=== PATIENT | female | born 1970 | race Two or more races ===

== ENCOUNTER 2020-06-04 08:04 | Inpatient (IN) | payer OTHER ==
[~2020-06-04] VITALS: Ht 167.6 cm; Wt 80.6 kg
[2020-06-04] MEDS ORDERED: SODIUM CHLORIDE 0.9% 1,000 ML IV ONE ×2 (08:37)
[2020-06-04 08:54] LABS: Basophils # (auto) 0 10 ^3/uL (0-0.2); Basophils % (auto) 0.8 % (0.0-2.0); Eosinophils # (auto) 0 10 ^3/uL (0-0.8); Eosinophils % (auto) 0.2 % (0.0-7.0); Hematocrit 44.7 % (36.0-46.0); Hemoglobin 14.7 g/dL (12.2-16.2); Lymphocytes # (auto) 0.8 10 ^3/uL (0.4-5.4); Lymphocytes % (auto) 16.8 % (10.0-50.0); Mean Corpuscular Hgb Conc. 32.9 g/dL (32.0-36.0); Mean Corpuscular Volume 88.2 fL (80.0-100.0); Monocytes # (auto) 0.3 10 ^3/uL (0-1.3); Monocytes % (auto) 5.2 % (0.0-12.0); Neutrophils # (auto) 3.8 10 ^3/uL (1.6-8.6); Platelet Count (auto) 130 10^3/uL (140-450); Red Blood Cells 5.07 10^6/uL (4.0-5.20); Red Cell Distribution Width 13.6 % (11.8-14.3); White Blood Cell 4.9 10^3/uL (4.4-10.8)
[2020-06-04 09:13] LABS: Albumin 3.2 g/dL (3.4-5.0); Anion Gap 6 (5-15); Blood Urea Nitrogen 6 mg/dL (7-18); Calcium 8.8 mg/dL (8.5-10.1); Carbon Dioxide 27 mmol/L (21-32); Chloride 101 mmol/L (98-107); Glucose 263 mg/dL (74-106); Potassium 3.5 mmol/L (3.5-5.1); Sodium 134 mmol/L (136-145)
[2020-06-04 09:21] LABS: Alanine Aminotransferase 78 U/L (13-56); Alkaline Phosphatase 152 U/L (45-117); Aspartate Aminotransferase 83 U/L (15-37); BUN/Creatinine Ratio 8.5; Bilirubin, Total 0.4 mg/dL (0.2-1.0); GFR African American 112 mL/min; GFR Non-African American 92 mL/min; Lactate Dehydrogenase 306 U/L (84-246); Total Protein 8.2 g/dL (6.4-8.2)
[2020-06-04] MEDS ORDERED: MORPHINE SULF INJ 2 MG/ML SYRINGE 1ML IV PRN ×3 (10:15→10:30)
[2020-06-04] MEDS ORDERED: NITROGLYCERIN 0.4 MG SL TAB SL PRN ×2 (10:15→10:30)
[2020-06-04] MEDS ORDERED: SODIUM CHLORIDE 0.9% 1,000 ML IV SCH (10:19)
[2020-06-04] MEDS ORDERED: DexAMETHasone SOD PHOS 4 MG/1ML SDV INJ IV ONE (10:30)
[2020-06-04] MEDS ORDERED: HYDROcodone-ACET 5/325MG TAB PO PRN (10:30)
[2020-06-04] MEDS ORDERED: DOCUSATE SOD 100 MG CAP PO PRN (10:30)
[2020-06-04] MEDS ORDERED: ACETAMINOPHEN 500 MG TAB PO PRN (10:30)
[2020-06-04] MEDS ORDERED: ENOXAPARIN SOD 100 MG/1 ML SYRINGE SC ONE (10:30)
[2020-06-04] MEDS ORDERED: LORazepam 0.5 MG TAB PO PRN (10:30)
[2020-06-04] MEDS ORDERED: ALUM & MAG HYDROX-SIMETH LIQ(MAALOX) 30 ML PO PRN (10:30)
[2020-06-04] MEDS ORDERED: ACETAMINOPHEN 325 MG TAB PO PRN (10:30)
[2020-06-04] MEDS ORDERED: ONDANSETRON HCL 4 MG/2 ML VIAL IV PRN (10:30)
[2020-06-04] MEDS ORDERED: FUROSEMIDE 20 MG/2 ML VIAL IV ONE (10:45)
[2020-06-04] MEDS: hydrOXYchloroQUINE SULFATE 200 MG TAB PO SCH ×2 (11:00→22:22)
[2020-06-04] MEDS ORDERED: DEXTROSE (50%) 50ML SYRG IV PRN (11:00)
[2020-06-04] MEDS ORDERED: cloNIDine HCL 0.1 MG TAB PO PRN (11:15)
[2020-06-04 11:27] LABS: Cholesterol 130 mg/dL (< 200); HDL Cholesterol 41 mg/dL (40-59); LDL Cholesterol 86 mg/dL (< 100); Triglycerides 90 mg/dL (< 150)
[2020-06-04] MEDS: InsuLIN REG 1unit/0.01ml Soln (100units/ml) SC SCH ×3 (11:30→22:22)
[2020-06-04] MEDS: ACCU-CHEK COMFORT CURVE STRIP VI SCH ×3 (11:30→22:22)
[2020-06-04 11:39] LABS: Urine Bacteria NONE SEEN /hpf (None Seen); Urine Blood Negative /uL (Negative); Urine WBC <1 /hpf (0 - 5)
[2020-06-04] MEDS ORDERED: methylPREDNISolone SOD SUCC 125 MG/2 ML VL IV ONE (11:45)
[2020-06-04 11:48] LABS: Alcohol, Urine < 3.0 mg/dL (0-10); Amphetamine Screen, Urine NEGATIVE (NEGATIVE); Barbiturate Scree,Urine NEGATIVE (NEGATIVE); Benzodiazephine Screen, Urine NEGATIVE (NEGATIVE); Cannabinoid Screen, Urine NEGATIVE (NEGATIVE); Cocaine Screen, Urine NEGATIVE (NEGATIVE); Opiate Scree,Urine NEGATIVE (NEGATIVE); Phencyclidine Screen, Urine NEGATIVE (NEGATIVE)
[2020-06-04] MEDS ORDERED: ASCO100076 PO (12:35)
[2020-06-04] MEDS ORDERED: ACET-1304 PO (12:35)
[2020-06-04] MEDS ORDERED: CHOL500033 PO (12:35)
[2020-06-04] MEDS: TOCILIZUMAB 400 MG in SODIUM CHL 0.9% 80 ML IV SCH (12:49)
[2020-06-04 13:52] VITALS: BP 150/78
[2020-06-04] MEDS: ALBUTEROL SULF HFA 90MCG INH 200DOSE IN SCH ×2 (14:17→22:01)
[2020-06-04] MEDS ORDERED: DexAMETHasone SOD PHOS 10MG/1ML VIAL INJ IV SCH (16:30)
[2020-06-04] MEDS: FUROSEMIDE 20 MG/2 ML VIAL IV SCH (18:03)
[2020-06-04] MEDS: FAMOTIDINE 20 MG TAB PO SCH (19:00)
--- NOTE | 2020-06-04 19:40 | NUR ---
Opening Shift Note Assumed care of patient, awake and alert. No S/S of distress/SOB or pain. Instructed on POC and to call for assist PRN. Bed in lowest locked position, call light within reach, side rails up x2. Will continue to monitor for changes Q1hr and PRN.
[2020-06-04 22:00] VITALS: BP 117/68
[2020-06-04] MEDS ORDERED: BUDESONIDE (INHALATION) 0.5 MG/2 ML NEB NEB SCH (22:00)
[2020-06-04] MEDS: DOXYCYCLINE 100MG/250ML 250 ML IV SCH (22:22)
[2020-06-04] MEDS: ENOXAPARIN SOD 100 MG/1 ML SYRINGE SC SCH (22:23)
[2020-06-04] MEDS ORDERED: methylPREDNISolone SOD SUCC 40 MG/ML VL IV ONE (23:30)
[2020-06-04] MEDS ORDERED: ACETAMINOPHEN 650 mg PER 20 mL UD PO ONE (23:30)
[2020-06-04] MEDS ORDERED: diphenhdrAMINE HCL 50 MG/1 ML VL IV ONE (23:30)
[2020-06-05] MEDS: TOCILIZUMAB 400 MG in SODIUM CHL 0.9% 80 ML IV SCH (00:24)
[2020-06-05 05:00] VITALS: BP 128/82
[2020-06-05] MEDS: FUROSEMIDE 20 MG/2 ML VIAL IV SCH ×2 (06:31→18:21)
[2020-06-05] MEDS: InsuLIN REG 1unit/0.01ml Soln (100units/ml) SC SCH ×4 (06:33→22:24)
[2020-06-05 06:37] LABS: Basophils # (auto) 0 10 ^3/uL (0-0.2); Basophils % (auto) 0.2 % (0.0-2.0); Eosinophils # (auto) 0 10 ^3/uL (0-0.8); Hemoglobin 15.3 g/dL (12.2-16.2); Lymphocytes # (auto) 0.9 10 ^3/uL (0.4-5.4); Lymphocytes % (auto) 34.7 % (10.0-50.0); Mean Corpuscular Hemoglobin 29.4 pg (28.0-32.0); Mean Corpuscular Hgb Conc. 33.2 g/dL (32.0-36.0); Mean Corpuscular Volume 88.4 fL (80.0-100.0); Monocytes # (auto) 0.2 10 ^3/uL (0-1.3); Monocytes % (auto) 7.9 % (0.0-12.0); Neutrophils # (auto) 1.5 10 ^3/uL (1.6-8.6); Neutrophils % (auto) 57.2 % (37.0-80.0); Nucleated Red Blood Cells % 0.4 %; Platelet Count (auto) 175 10^3/uL (140-450); Red Blood Cells 5.21 10^6/uL (4.0-5.20); Red Cell Distribution Width 13.5 % (11.8-14.3); White Blood Cell 2.7 10^3/uL (4.4-10.8)
[2020-06-05] MEDS: ACCU-CHEK COMFORT CURVE STRIP VI SCH ×4 (06:40→22:24)
[2020-06-05 06:49] LABS: Potassium 3.1 mmol/L (3.5-5.1)
[2020-06-05 06:54] LABS: INR 1.01 (0.9-1.15); Partial Thromboplastin Time 39.8 sec (23.64-32.05)
[2020-06-05 07:20] LABS: BUN/Creatinine Ratio 12.8; Bilirubin, Total 0.5 mg/dL (0.2-1.0); CRP High Sensitivity 13.2 mg/dL (< 0.3); Calcium 8.8 mg/dL (8.5-10.1); Magnesium 2.1 mg/dL (1.6-2.6); Phosphorus 3.5 mg/dL (2.5-4.90); Total Protein 8.4 g/dL (6.4-8.2)
[2020-06-05 08:00] VITALS: BP 111/67
[2020-06-05] MEDS ORDERED: POTASSIUM CHL 20 Meq TABLET PO ONE (08:45)
[2020-06-05 09:04] VITALS: BP 111/67
[2020-06-05] MEDS: DexAMETHasone SOD PHOS 10MG/1ML VIAL INJ IV SCH (09:30)
[2020-06-05] MEDS: DOXYCYCLINE 100MG/250ML 250 ML IV SCH ×2 (09:31→22:21)
[2020-06-05] MEDS: ZINC SULFATE 220mg CAP or TAB PO SCH (09:31)
[2020-06-05] MEDS: FAMOTIDINE 20 MG TAB PO SCH (09:33)
[2020-06-05] MEDS: CHOLECALCIFEROL (VITD3) 1,000UNIT=25mCg TAB PO SCH (09:34)
[2020-06-05] MEDS: ASCORBIC ACID 1,000 MG TAB PO SCH (09:34)
[2020-06-05] MEDS: ENOXAPARIN SOD 100 MG/1 ML SYRINGE SC SCH ×2 (09:35→22:22)
[2020-06-05] MEDS: ALBUTEROL SULF HFA 90MCG INH 200DOSE IN SCH ×3 (11:30→23:40)
[2020-06-05] MEDS: hydrOXYchloroQUINE SULFATE 200 MG TAB PO SCH ×2 (12:14→22:22)
[2020-06-05 12:30] VITALS: BP 130/63
--- NOTE | 2020-06-05 13:23 | NUR ---
1320 06/05/20 Contacted [facility] at [phone] requesting authorization for continued inpatient stay. Spoke with senior compliance analyst Sherry who confirmed receiving all clinical notes for this patient. Sherry provided authorization [id number] for continued inpatient stay.
[2020-06-05] MEDS ORDERED: cefTRIAXone 1GM/50ML D5W 50 ML IV ONE (14:30)
[2020-06-05] MEDS ORDERED: DEXTROSE (50%) 50ML SYRG IV PRN (16:30)
[2020-06-05 17:07] VITALS: BP 127/72
[2020-06-05 22:00] VITALS: BP 125/79
[2020-06-05] MEDS: BUDESONIDE (INHALATION) 180 MCG IH IN SCH (22:00)
[2020-06-05] MEDS: INSULIN 70/30 1unit/0.01ml Susp (100units/ml) SC SCH (22:22)
--- NOTE | 2020-06-05 22:30 | NUR ---
IV insertion IV access obtained, via clean sterile technique by inserting 22 gauge catheter at right wrist after 1 attempt(s). IV secured properly. No trauma to site. Patient tolerated procedure well.
[2020-06-06 05:15] VITALS: BP 118/72
[2020-06-06 06:29] LABS: Calcium 9.3 mg/dL (8.5-10.1)
[2020-06-06] MEDS: ACCU-CHEK COMFORT CURVE STRIP VI SCH ×4 (06:30→23:42)
[2020-06-06] MEDS: InsuLIN REG 1unit/0.01ml Soln (100units/ml) SC SCH ×4 (06:30→23:41)
[2020-06-06] MEDS: FUROSEMIDE 20 MG/2 ML VIAL IV SCH ×2 (06:30→18:03)
[2020-06-06 06:34] LABS: BUN/Creatinine Ratio 20.8; Bilirubin, Total 0.4 mg/dL (0.2-1.0); Total Protein 8.2 g/dL (6.4-8.2)
[2020-06-06] MEDS: ALBUTEROL SULF HFA 90MCG INH 200DOSE IN SCH ×3 (07:43→22:25)
[2020-06-06] MEDS: BUDESONIDE (INHALATION) 180 MCG IH IN SCH ×2 (07:43→22:25)
[2020-06-06 08:20] VITALS: BP 112/67
[2020-06-06] MEDS ORDERED: guaiFENesin 200 MG/10 ML UD PO PRN (08:45)
[2020-06-06] MEDS: cefTRIAXone 1GM/50ML D5W 50 ML IV SCH (09:07)
[2020-06-06] MEDS: DexAMETHasone SOD PHOS 10MG/1ML VIAL INJ IV SCH (09:47)
[2020-06-06] MEDS: ZINC SULFATE 220mg CAP or TAB PO SCH (09:47)
[2020-06-06] MEDS: FAMOTIDINE 20 MG TAB PO SCH (09:47)
[2020-06-06] MEDS: CHOLECALCIFEROL (VITD3) 1,000UNIT=25mCg TAB PO SCH (09:48)
[2020-06-06] MEDS: hydrOXYchloroQUINE SULFATE 200 MG TAB PO SCH ×2 (09:48→23:33)
[2020-06-06] MEDS: ASCORBIC ACID 1,000 MG TAB PO SCH (09:48)
[2020-06-06] MEDS: DOXYCYCLINE 100MG/250ML 250 ML IV SCH (10:18)
[2020-06-06] MEDS: ENOXAPARIN SOD 60 MG/0.6 ML SYRINGE SC SCH ×2 (10:34→23:34)
[2020-06-06] MEDS: INSULIN 70/30 1unit/0.01ml Susp (100units/ml) SC SCH ×2 (10:35→23:40)
--- NOTE | 2020-06-06 11:00 | NUR ---
DR SIDDIQUI AT BEDSIDE DECREASED OXYGEN TO 8 LITERS VIA OXYMIZER WITH SATURATION 91-92 %. HE SAID LEAVE HER ON 8 LITERS AND OXYGEN SATURATION 91 % OR BETTER.
[2020-06-06 12:18] VITALS: BP 115/63
--- NOTE | 2020-06-06 14:31 | NUR ---
Nutrition Consult/assessment Note please see attached link for complete assessment Est energy needs ABW 72 [id number] kcal (23-25 kcal/kg) Est protein needs 72-79g (1.0-1.1g/kg BW) will reassess prn. Addendum: 06/06/20 at [address] Amended: Links added.
[2020-06-06 16:44] VITALS: BP 135/67
--- NOTE | 2020-06-06 16:48 | NUR ---
330 06/07/20 - Contacted [facility] at [phone], requesting update on transfer to [facility]. Spoke with product management analyst [place] who stated there are no available beds and authorization [id number] has been extended for continued inpatient stay.
--- NOTE | 2020-06-06 20:00 | NUR ---
Opening Shift Note Assumed care of patient. Awake, alert and oriented x4. No S/S of distress/SOB or pain. Patient is laying down in bed, oxymizer is on at 12L, with even and unlabored respirations. Instructed on POC and to call for assist PRN. Bed locked, in lowest position, call light within reach, side rails up x2. Will continue to monitor for changes Q1hr and PRN.
[2020-06-06] MEDS: methylPREDNISolone SOD SUCC 40 MG/ML VL IV SCH (21:01)
[2020-06-06] MEDS: diphenhdrAMINE HCL 50 MG/1 ML VL IV SCH (21:01)
[2020-06-06] MEDS: ACETAMINOPHEN 650 mg PER 20 mL UD PO SCH (21:02)
[2020-06-06] MEDS: TOCILIZUMAB 400 MG in SODIUM CHL 0.9% 80 ML IV SCH (21:43)
[2020-06-06 22:00] VITALS: BP 110/58
[2020-06-06] MEDS ORDERED: PATIENTS OWN MEDICATION (ACTEMRA 400 MG) IV SCH ×2 (22:00)
[2020-06-07] VITALS (9 sets, daily range): BP systolic 107–132; BP diastolic 57–78
[2020-06-07] MEDS: DOXYCYCLINE 100MG/250ML 250 ML IV SCH ×3 (01:56→22:00)
[2020-06-07] MEDS: FUROSEMIDE 20 MG/2 ML VIAL IV SCH ×2 (06:23→18:03)
[2020-06-07] MEDS: ACCU-CHEK COMFORT CURVE STRIP VI SCH ×4 (06:23→21:38)
[2020-06-07] MEDS: InsuLIN REG 1unit/0.01ml Soln (100units/ml) SC SCH ×4 (06:27→21:37)
[2020-06-07] MEDS: ALBUTEROL SULF HFA 90MCG INH 200DOSE IN SCH ×3 (07:20→22:00)
[2020-06-07] MEDS: methylPREDNISolone SOD SUCC 40 MG/ML VL IV SCH (08:45)
[2020-06-07] MEDS: diphenhdrAMINE HCL 50 MG/1 ML VL IV SCH (08:45)
[2020-06-07] MEDS: ACETAMINOPHEN 650 mg PER 20 mL UD PO SCH (08:45)
[2020-06-07] MEDS: TOCILIZUMAB 400 MG in SODIUM CHL 0.9% 80 ML IV SCH (09:00)
[2020-06-07] MEDS: cefTRIAXone 1GM/50ML D5W 50 ML IV SCH (11:40)
[2020-06-07] MEDS: DexAMETHasone SOD PHOS 10MG/1ML VIAL INJ IV SCH (11:40)
[2020-06-07] MEDS: BUDESONIDE (INHALATION) 180 MCG IH IN SCH ×2 (11:40→22:00)
[2020-06-07] MEDS: CHOLECALCIFEROL (VITD3) 1,000UNIT=25mCg TAB PO SCH (11:41)
[2020-06-07] MEDS: ZINC SULFATE 220mg CAP or TAB PO SCH (11:41)
[2020-06-07] MEDS: ASCORBIC ACID 1,000 MG TAB PO SCH (11:41)
[2020-06-07] MEDS: hydrOXYchloroQUINE SULFATE 200 MG TAB PO SCH (11:41)
[2020-06-07] MEDS: FAMOTIDINE 20 MG TAB PO SCH (11:41)
[2020-06-07] MEDS: ENOXAPARIN SOD 60 MG/0.6 ML SYRINGE SC SCH ×2 (11:42→21:28)
[2020-06-07] MEDS: INSULIN 70/30 1unit/0.01ml Susp (100units/ml) SC SCH ×2 (11:44→21:37)
[2020-06-07] MEDS ORDERED: REMDESIVIR 200 MG in NS 210ml LOADING DOSE ADULT IV ONE ×2 (18:00→21:00)
--- NOTE | 2020-06-07 19:30 | NUR ---
Opening Shift Note Assumed care of patient, awake and alert. No S/S of distress/SOB or pain. Instructed on POC and to call for assist PRN, will continue to monitor for changes Q1hr and PRN. bed in low position and call light within reach.
--- NOTE | 2020-06-07 19:30 | NUR ---
patient refuses pulse ox monitor per patient " it makes too much noise" patient educated on benefits and risk. patient verbalized understanding.
--- NOTE | 2020-06-07 21:03 | NUR ---
IV insertion/IV removal IV DC'd with clean sterile technique, catheter fully intact. Pressure dressing applied to site. Patient tolerated well. IV access obtained, via clean sterile technique by inserting 22 gauge catheter to right and left hand after 1 attempt. IV secured properly. No trauma to site. Patient tolerated well.
--- NOTE | 2020-06-07 21:11 | NUR ---
medication Remdesivir medication pre infusion vs 144/82 b/p o2 saturation 90% via 10l oxymizer, rr 18, temperature 98.0. heart rate 73bpm. patient consent signed .patient educated on mediation including benefits and risk. fact sheet provided to patient but patient refused stated she wants her fact sheet placed in her chart. patient informed that remedesivir is an unapproved drug that is authorized for use under [employer]. all questions and concerns answered patient verbalized understanding. Addendum: 06/08/20 at 0000 by IVONNE GALEANA RN RN correction 12l oxymizer
--- NOTE | 2020-06-07 21:26 | NUR ---
15 min vs b/p 138/75,heart rate 64,o2 saturation 90%, t 98.0.denies distress or pain. no reaction noted or reported.
--- NOTE | 2020-06-07 21:37 | NUR ---
patient refused insulin scheduled. per patient " i do not want my blood sugar to drop since i am receiving the other insulin." patient educated on benefits and risk patient verbalized understanding and refused.
--- NOTE | 2020-06-07 22:15 | NUR ---
post infusion vs b/p 112/76, hr 62, rr 16, o2 saturation 90%, temp 98.5. patient denies distress or pain. no reaction noted or reported.
--- NOTE | 2020-06-08 | NUR ---
correction 12l oxymizer
[2020-06-08 05:00] VITALS: BP 113/53
[2020-06-08 05:12] LABS: Basophils # (auto) 0 10 ^3/uL (0-0.2); Basophils % (auto) 0.1 % (0.0-2.0); Eosinophils # (auto) 0 10 ^3/uL (0-0.8); Hematocrit 45.6 % (36.0-46.0); Hemoglobin 15.2 g/dL (12.2-16.2); Lymphocytes # (auto) 1.4 10 ^3/uL (0.4-5.4); Mean Corpuscular Hemoglobin 29.5 pg (28.0-32.0); Mean Corpuscular Hgb Conc. 33.4 g/dL (32.0-36.0); Mean Corpuscular Volume 88.3 fL (80.0-100.0); Monocytes # (auto) 0.6 10 ^3/uL (0-1.3); Monocytes % (auto) 13.4 % (0.0-12.0); Neutrophils # (auto) 2.7 10 ^3/uL (1.6-8.6); Neutrophils % (auto) 56.5 % (37.0-80.0); Nucleated Red Blood Cells % 0.1 %; Platelet Count (auto) 186 10^3/uL (140-450); Red Blood Cells 5.17 10^6/uL (4.0-5.20); Red Cell Distribution Width 13.1 % (11.8-14.3); White Blood Cell 4.7 10^3/uL (4.4-10.8)
[2020-06-08 05:29] LABS: Potassium 3.3 mmol/L (3.5-5.1)
[2020-06-08 05:35] LABS: BUN/Creatinine Ratio 18.1; Bilirubin, Total 0.5 mg/dL (0.2-1.0); Total Protein 7.6 g/dL (6.4-8.2)
[2020-06-08] MEDS: FUROSEMIDE 20 MG/2 ML VIAL IV SCH ×2 (06:25→17:36)
[2020-06-08] MEDS: ACCU-CHEK COMFORT CURVE STRIP VI SCH ×4 (06:30→21:54)
[2020-06-08] MEDS: InsuLIN REG 1unit/0.01ml Soln (100units/ml) SC SCH ×4 (06:30→21:54)
--- NOTE | 2020-06-08 06:50 | NUR ---
patient rounds patient is in bed performing am care. patient denies distress or pain. call light within reach and bed in low position
--- NOTE | 2020-06-08 07:14 | NUR ---
report given to dayshift rn patient is alert and awake denies sob distress or pain
[2020-06-08 09:00] VITALS: BP 107/59
[2020-06-08] MEDS: ALBUTEROL SULF HFA 90MCG INH 200DOSE IN SCH ×3 (09:20→23:12)
[2020-06-08] MEDS: BUDESONIDE (INHALATION) 180 MCG IH IN SCH ×2 (09:20→23:12)
[2020-06-08] MEDS: ZINC SULFATE 220mg CAP or TAB PO SCH (09:36)
[2020-06-08] MEDS: FAMOTIDINE 20 MG TAB PO SCH (09:36)
[2020-06-08] MEDS: cefTRIAXone 1GM/50ML D5W 50 ML IV SCH ×2 (09:36→22:49)
[2020-06-08] MEDS: ENOXAPARIN SOD 60 MG/0.6 ML SYRINGE SC SCH ×2 (09:37→21:54)
[2020-06-08] MEDS: ASCORBIC ACID 1,000 MG TAB PO SCH (09:37)
[2020-06-08] MEDS: CHOLECALCIFEROL (VITD3) 1,000UNIT=25mCg TAB PO SCH (09:37)
[2020-06-08] MEDS: INSULIN 70/30 1unit/0.01ml Susp (100units/ml) SC SCH ×2 (10:00→21:55)
[2020-06-08] MEDS: DexAMETHasone SOD PHOS 10MG/1ML VIAL INJ IV SCH (10:32)
[2020-06-08] MEDS: DOXYCYCLINE 100MG/250ML 250 ML IV SCH ×2 (10:32→23:20)
--- NOTE | 2020-06-08 11:59 | NUR ---
Dr Sutherland called with orders for labs on wednesday.
[2020-06-08 13:00] VITALS: BP 132/72
[2020-06-08] MEDS ORDERED: POTASSIUM EFFERVESENT TAB 25 MEQ PO ONE (16:30)
[2020-06-08 17:00] VITALS: BP 134/75
--- NOTE | 2020-06-08 20:04 | NUR ---
OPEN NOTE Assumed care of pt. upon entering room pt awake, alert and oriented x4. pt on 12L oxymizer with no distress noted or expressed. pt denies any pain. pt updated on plan of care. pt assisted to bsc as she states she can get light headed at times. pt refuses to wear continuous pulse ox despite this nurse reinforcing risks and benefits. oxygen saturation is 91% at this time. bed locked, low and 2x rails up. pt encouraged to call nurse as needed. call light in reach, this nurse to round q1hr and prn.
[2020-06-08] MEDS ORDERED: REMDESIVIR 100mg in NS 230ml DAILYx4DAYS (NO VENT) IV SCH (21:00)
[2020-06-09 05:00] VITALS: BP 113/68
[2020-06-09 05:52] LABS: BUN/Creatinine Ratio 25.9; Calcium 9.2 mg/dL (8.5-10.1); Potassium 3.6 mmol/L (3.5-5.1)
[2020-06-09] MEDS: ACCU-CHEK COMFORT CURVE STRIP VI SCH ×4 (06:21→21:40)
[2020-06-09] MEDS: FUROSEMIDE 20 MG/2 ML VIAL IV SCH ×2 (06:21→17:46)
[2020-06-09] MEDS: InsuLIN REG 1unit/0.01ml Soln (100units/ml) SC SCH ×4 (06:22→21:41)
[2020-06-09] MEDS: ALBUTEROL SULF HFA 90MCG INH 200DOSE IN SCH ×3 (06:46→23:46)
[2020-06-09] MEDS: BUDESONIDE (INHALATION) 180 MCG IH IN SCH ×2 (06:46→22:00)
[2020-06-09 08:48] VITALS: BP 117/70
[2020-06-09] MEDS: ZINC SULFATE 220mg CAP or TAB PO SCH (09:49)
[2020-06-09] MEDS: FAMOTIDINE 20 MG TAB PO SCH (09:49)
[2020-06-09] MEDS: POTASSIUM EFFERVESENT TAB 25 MEQ PO SCH (09:49)
[2020-06-09] MEDS: CHOLECALCIFEROL (VITD3) 1,000UNIT=25mCg TAB PO SCH (09:49)
[2020-06-09] MEDS: ENOXAPARIN SOD 60 MG/0.6 ML SYRINGE SC SCH ×2 (09:49→21:39)
[2020-06-09] MEDS: cefTRIAXone 1GM/50ML D5W 50 ML IV SCH ×2 (09:50→21:39)
[2020-06-09] MEDS: DexAMETHasone SOD PHOS 10MG/1ML VIAL INJ IV SCH (09:50)
[2020-06-09] MEDS: DOXYCYCLINE 100MG/250ML 250 ML IV SCH (09:58)
[2020-06-09] MEDS: ASCORBIC ACID 1,000 MG TAB PO SCH (09:58)
[2020-06-09] MEDS: INSULIN 70/30 1unit/0.01ml Susp (100units/ml) SC SCH ×2 (09:59→21:40)
[2020-06-09 12:23] VITALS: BP 125/72
--- NOTE | 2020-06-09 13:58 | NUR ---
Nutrition Followup Note Wt 81.0kg Pt is covid positive in the covid wing. Pt with diet order of CCHO 75g. Pt appetite is fair aeb pt with inadequate intake of 50% avg po intake x 3 days. Will continue to monitor pt po intake and need for additional oral supplements. Est energy needs ABW 72 [id number] kcal (23-25 kcal/kg) Est protein needs 72-79g (1.0-1.1g/kg BW) will reassess prn. Labs: Creat 0.54L, Alb 3.0L, GLUC 142H BM: Pt with 2 BMs 06/09 per RN note Skin: BS 18 mod risk, full details in spiritual care coordinator note PES: Altered nutrition related lab values r/t current chronic medical condition aeb hyperglycemia, elev A1C Decreased nutrient needs r/t adiposity aeb pt`s high BMI of 30.5 kgm2 Comments Consider changing pt diet to CCHO 60g 1) refer to CDE on DC 2) continue current plan of care Expected Outcomes/Goals: pt will have improved labs pt will not gain any more wt F/u mod 3-5 days
[2020-06-09 17:21] VITALS: BP 119/73
[2020-06-09] MEDS: REMDESIVIR 100mg in NS 230ml DAILYx4DAYS (NO VENT) IV SCH (17:45)
--- NOTE | 2020-06-09 17:50 | NUR ---
after I scanned the medication the patient asked that I wait until she goes to the bathroom before starting. Patient currently going to bathroom on commode. Addendum: 06/09/20 at 1823 by Bindu Orta RN RE: tom
--- NOTE | 2020-06-09 18:10 | NUR ---
Remdicivir started on patient.
--- NOTE | 2020-06-09 19:15 | NUR ---
Opening note pt is A&Ox4. respirations are even and nonlabored on 11L oxymizer. no s/s of pain or distress at this time. pt experiences SOB with exertion, and is encouraged to call for assistance when trying to ambulate to BSC. pt is using the incentive spirometer. POC discussed with pt, verbalized understanding. bed in low locked position, call light within reach.
[2020-06-09 23:13] VITALS: BP 141/76
[2020-06-10 05:30] VITALS: BP 107/57
[2020-06-10] MEDS: ACCU-CHEK COMFORT CURVE STRIP VI SCH ×4 (06:56→21:56)
[2020-06-10] MEDS: InsuLIN REG 1unit/0.01ml Soln (100units/ml) SC SCH ×4 (06:57→21:55)
[2020-06-10] MEDS: FUROSEMIDE 20 MG/2 ML VIAL IV SCH ×2 (07:07→18:23)
[2020-06-10] MEDS: BUDESONIDE (INHALATION) 180 MCG IH IN SCH ×2 (07:15→22:15)
--- NOTE | 2020-06-10 07:22 | NUR ---
closing note pt resting in semi fowlers with HOB at 30 degrees. pt is on 11L oxymizer. no c/o pain or discomfort at this time. endorsed care to day shift ERIK Yanez.
[2020-06-10 07:35] LABS: Albumin 3.2 g/dL (3.4-5.0); Potassium 3.8 mmol/L (3.5-5.1)
[2020-06-10 07:40] LABS: BUN/Creatinine Ratio 27.1; Bilirubin, Total 0.7 mg/dL (0.2-1.0); Total Protein 7.5 g/dL (6.4-8.2)
[2020-06-10] MEDS: ALBUTEROL SULF HFA 90MCG INH 200DOSE IN SCH ×3 (08:37→22:15)
[2020-06-10] MEDS: ZINC SULFATE 220mg CAP or TAB PO SCH (10:18)
[2020-06-10] MEDS: DexAMETHasone SOD PHOS 10MG/1ML VIAL INJ IV SCH (10:18)
[2020-06-10] MEDS: FAMOTIDINE 20 MG TAB PO SCH (10:18)
[2020-06-10] MEDS: ENOXAPARIN SOD 60 MG/0.6 ML SYRINGE SC SCH ×2 (10:18→21:56)
[2020-06-10] MEDS: cefTRIAXone 1GM/50ML D5W 50 ML IV SCH ×2 (10:18→21:56)
[2020-06-10] MEDS: ASCORBIC ACID 1,000 MG TAB PO SCH (10:18)
[2020-06-10] MEDS: POTASSIUM EFFERVESENT TAB 25 MEQ PO SCH (10:18)
[2020-06-10 10:49] VITALS: BP 115/73
[2020-06-10] MEDS: CHOLECALCIFEROL (VITD3) 1,000UNIT=25mCg TAB PO SCH (11:04)
[2020-06-10 11:42] VITALS: BP 115/73
[2020-06-10] MEDS: INSULIN 70/30 1unit/0.01ml Susp (100units/ml) SC SCH ×2 (12:52→22:00)
[2020-06-10 13:00] VITALS: BP 109/65
--- NOTE | 2020-06-10 16:00 | NUR ---
PT ON 5LPM OXYMIZER AT 93% TOLERATING WELL. WILL CONTINUE TO MONITOR.
[2020-06-10] MEDS: REMDESIVIR 100mg in NS 230ml DAILYx4DAYS (NO VENT) IV SCH (17:28)
[2020-06-10 17:47] VITALS: BP 106/67
--- NOTE | 2020-06-10 19:10 | NUR ---
Opening note pt A&Ox4. respirations even and nonlabored on 5L oxymizer. O2 saturation is 95% at this time. pt denies any pain or discomfort at this time. no s/s of distress. POC discussed. pt ambulates to BSC with standby assist. bed in low locked position, call light within reach.
[2020-06-10 22:00] VITALS: BP 126/67
--- NOTE | 2020-06-11 02:20 | NUR ---
Rounds pt resting comfortably in rt lateral position with eyes closed. Respirations even and nonlabored on 5L oxymizer. O2 saturation is 94%. will continue to monitor.
[2020-06-11 05:28] VITALS: BP 129/77
[2020-06-11] MEDS: FUROSEMIDE 20 MG/2 ML VIAL IV SCH ×2 (06:45→17:44)
[2020-06-11] MEDS: ACCU-CHEK COMFORT CURVE STRIP VI SCH ×4 (06:46→21:42)
[2020-06-11] MEDS: InsuLIN REG 1unit/0.01ml Soln (100units/ml) SC SCH ×4 (06:46→21:42)
--- NOTE | 2020-06-11 07:19 | NUR ---
CLOSING NOTE pt dangling at bedside. respirations even and nonlabored on 5L oxymizer. no c/o pain or discomfort. bed in low locked position, call light within reach.
[2020-06-11 09:00] VITALS: BP 100/58
[2020-06-11] MEDS: cefTRIAXone 1GM/50ML D5W 50 ML IV SCH ×2 (09:20→21:41)
[2020-06-11] MEDS: DexAMETHasone SOD PHOS 10MG/1ML VIAL INJ IV SCH (09:21)
[2020-06-11] MEDS: ASCORBIC ACID 1,000 MG TAB PO SCH (09:21)
[2020-06-11] MEDS: FAMOTIDINE 20 MG TAB PO SCH (09:21)
[2020-06-11] MEDS: POTASSIUM EFFERVESENT TAB 25 MEQ PO SCH (09:22)
[2020-06-11] MEDS: ZINC SULFATE 220mg CAP or TAB PO SCH (09:23)
[2020-06-11] MEDS: BUDESONIDE (INHALATION) 180 MCG IH IN SCH (09:23)
[2020-06-11] MEDS: CHOLECALCIFEROL (VITD3) 1,000UNIT=25mCg TAB PO SCH (10:45)
[2020-06-11] MEDS: ENOXAPARIN SOD 60 MG/0.6 ML SYRINGE SC SCH ×2 (10:45→21:41)
[2020-06-11] MEDS: ALBUTEROL SULF HFA 90MCG INH 200DOSE IN SCH ×2 (10:50→16:11)
[2020-06-11] MEDS: INSULIN 70/30 1unit/0.01ml Susp (100units/ml) SC SCH ×2 (12:37→21:43)
[2020-06-11 13:00] VITALS: BP 104/59
--- NOTE | 2020-06-11 16:41 | NUR ---
assessment Patient is a 50 year old female who is alert and oriented and Covid positive. Patients cognitive abilities are intact. Prior to admission patient lived home with family and functioned independently. Patient informed me she is able to care for her own ADLs. Per patient she will return home to her prior living arrangements post discharge and family will transport her home. Patient informed me her PCP is Dr Mckeon in [place]. Patient informed me she works at an [employer] and may have got covid 19 from work. Patients i spositive also and works at the same facility. Patient is on 7L oxygen today. Patient may need oxygen on discharge. I will continue to monitor and follow up as appropriate. I informed patient she has a right to speak to a social sciences instructor regarding all care. I informed patient she has a right to participate in any and all discharge planning. Patient does not have a POA and advanced directive. I have offered patient information on POA and advanced directives. I informed the patient the advantages and benefits of having an Advanced Directive. Patient verbalized understanding and agreed to discharge plan. Addendum: 06/11/20 at 1644 by Anuradha ROB Amended: Links added. Addendum: 06/11/20 at 1648 by Anuradha ROB correction to above note Patient does not work at the [employer]. Patient is unsure of where she may have come in contact with the Covid virus. Patient uses the [facility] for any medical needs at [place]. Patient is on 12L oximizer today and may need oxygen on discharge.
[2020-06-11 16:46] VITALS: BP 107/56
[2020-06-11] MEDS: REMDESIVIR 100mg in NS 230ml DAILYx4DAYS (NO VENT) IV SCH (17:42)
--- NOTE | 2020-06-11 18:20 | NUR ---
PT ON 4LPM OXYMIZER AT 94% TOLERATING WELL. PT DENIES ANY DISCOMFORT. BED LOCKED AND IN LOWEST POSITION CALL LIGHT WITHIN REACH.
--- NOTE | 2020-06-11 19:10 | NUR ---
Opening note Pt is A&Ox4. Respirations even and nonlabored on 4L nc. no c/o pain or discomfort. bed in low locked position, call light within reach.
--- NOTE | 2020-06-11 21:40 | NUR ---
Dr. Sebas Mullen contacted this patient's RN via telephone. Dr. Mullen gave orders to titrate O2 supplementation down to 3L via nasal cannula. This nurse will carry out order.
[2020-06-11 22:00] VITALS: BP 113/50
[2020-06-12] VITALS (7 sets, daily range): BP systolic 100–112; BP diastolic 59–68
[2020-06-12] MEDS: ALBUTEROL SULF HFA 90MCG INH 200DOSE IN SCH ×4 (00:14→22:42)
[2020-06-12] MEDS: BUDESONIDE (INHALATION) 180 MCG IH IN SCH ×3 (00:14→22:00)
--- NOTE | 2020-06-12 00:14 | NUR ---
PT REFUSED TO BE TITRATED TO 3L O2 VIA OXYMIZER. PT ASKED TO BE LEFT ON 4L, EXPLAINED TO PT THAT SHE WAS NOT REQUIRING A HIGHER LEVEL OF OXYGEN AT THIS TIME, PT STILL REFUSED.
[2020-06-12] MEDS: InsuLIN REG 1unit/0.01ml Soln (100units/ml) SC SCH ×4 (06:11→21:04)
[2020-06-12] MEDS: ACCU-CHEK COMFORT CURVE STRIP VI SCH ×4 (06:12→21:02)
[2020-06-12] MEDS: FUROSEMIDE 20 MG/2 ML VIAL IV SCH ×2 (06:12→17:47)
--- NOTE | 2020-06-12 07:45 | NUR ---
closing note Pt resting in right lateral position. Respirations even and nonlabored on 3Lnc. O2 saturation is 93%. Pt denies pain or discomfort at this time. bed in low locked position, call light within reach. Endorsed care to day shift RN.
--- NOTE | 2020-06-12 07:55 | NUR ---
DR ATWOOD CALLED WITH NEW ORDERS FOR DIRECTOR OF CARDIOLOGY TO ARRANGE HOME O2, HOME PT AND VISITING NURSE
--- NOTE | 2020-06-12 08:00 | NUR ---
ASSESSMENT NOTE PT IS LAERT ORIENTED X4, SITTING UP IN BED NO DISTRESS NOTED, A WEAK SPEECH NOTED, WITH 3 L OXYGEN OXYMIZER, ABLE TO SELF REPOSITION AND VERBALIS HIS DEMANDS, PAIN 0/10 AT THIS TIME, USE BED SIDE COMMODE NEEDED, CALL LIGHT WITHIN REACH
[2020-06-12] MEDS: INSULIN 70/30 1unit/0.01ml Susp (100units/ml) SC SCH ×2 (09:38→21:16)
[2020-06-12] MEDS: ZINC SULFATE 220mg CAP or TAB PO SCH (10:03)
[2020-06-12] MEDS: cefTRIAXone 1GM/50ML D5W 50 ML IV SCH ×2 (10:03→21:02)
[2020-06-12] MEDS: DexAMETHasone SOD PHOS 10MG/1ML VIAL INJ IV SCH (10:03)
[2020-06-12] MEDS: ASCORBIC ACID 1,000 MG TAB PO SCH (10:04)
[2020-06-12] MEDS: ENOXAPARIN SOD 60 MG/0.6 ML SYRINGE SC SCH ×2 (10:04→20:57)
[2020-06-12] MEDS: POTASSIUM EFFERVESENT TAB 25 MEQ PO SCH (10:04)
[2020-06-12] MEDS: CHOLECALCIFEROL (VITD3) 1,000UNIT=25mCg TAB PO SCH (10:04)
[2020-06-12] MEDS: FAMOTIDINE 20 MG TAB PO SCH (10:04)
--- NOTE | 2020-06-12 11:00 | NUR ---
BM PT WAS ABLE TO GET OUT OF BED AND USE BED SIDE COMMODE, HAS A LARGE BM
--- NOTE | 2020-06-12 11:25 | NUR ---
DR ATWOOD AT BED SIDE WITH DISCHARGE HOME INSTRUCTION , DR ATWOOD VERBALIS EACH MEDICATION THE ONES SHE NEED TO TAKE AT HOME, TO CONTINUE ON OXYGEN WHICH WILL BE ARRANGE TODAY WITH OUR GROUP ROOMS COORDINATOR, USE THE INCENTIVE SPIROMETER, DURABLE MEDICAL EQUIPMENT TECHNICIAN THE NEW PRESCRIBED MEDICATIONS FROM HER HOME [facility], AND FOLLOW UP WITH THE PRIMARY MD IN [place], FOR PT TO SCHEDULE APPOINTMENT SOON ARRIVE HOME WITH THE HELP FROM HER
--- NOTE | 2020-06-12 11:26 | NUR ---
PT VERBALIS UNDERSTANDING FROM ALL THE DISCHARGE INSTRUCTION BEEN GIVEN WITH DR ATWOOD
[2020-06-12] MEDS ORDERED: BLOO1KIT60 XX (13:20)
[2020-06-12] MEDS ORDERED: METF-370 PO (13:20)
[2020-06-12] MEDS ORDERED: ALBUAER3 IN (13:20)
[2020-06-12] MEDS ORDERED: BUDE1AER5 IN (13:20)
[2020-06-12] MEDS ORDERED: APIX5TAB PO (13:20)
[2020-06-12] MEDS ORDERED: GUAI-41 PO (13:20)
--- NOTE | 2020-06-12 13:57 | NUR ---
1030 06/12/20 - Faxed to [facility] at [phone] face sheet, Order for home PT, home oxygen, home visiting nurse, requesting authorization for home health and DME. Pending review and authorization from [facility]. Addendum: 06/12/20 at 1401 by Ivana Bowen RN Spoke with applications support analyst Freddie who stated to refax due to fax machine back up.
--- NOTE | 2020-06-12 16:00 | NUR ---
CONTINUE WAITING FOR HOME OXYGEN, PT MADE AWARE THAT WE STILL WAITING FOR DME AUTHORIZATION, CAN NOT GO HOME WITHOUT HOME OXYGEN, VERBALIS UNDERSTANDING
--- NOTE | 2020-06-12 16:47 | NUR ---
PT IS ANXIOUS TO GO HOME, COMMUNICATING WITH HER FAMILY OVER THE PHONE AT ALL TIMES
--- NOTE | 2020-06-12 17:30 | NUR ---
PATIENT IS OVER THE PHONE WITH [facility], WAS TOLD THAT ALL HER MEDICATIONS ARE READY FOR [facility] LINE TENDER
--- NOTE | 2020-06-12 18:52 | NUR ---
PT CONTINUE STABLE, NO DISTRESS NOTED, CONTINUE MONITORING
--- NOTE | 2020-06-12 19:40 | NUR ---
Opening Shift Note Assumed care of patient, awake and alert, oriented x 4, follows direction. On oxygen at 3L via NC with o2 sat 96%, titrated oxygen to 2L with o2 sat 94-95%. No S/S of distress/SOB. Patient turns independently in bed. Bed in lowest locked position with side rails up x 2 and call light within reach. Instructed on POC, home oxygen has not been delivered and pending [place] authorization, patient verbalized understanding. Instructed to call for assist PRN, will continue to monitor for changes Q1hr and PRN.
[2020-06-13 05:00] VITALS: BP 100/63
[2020-06-13] MEDS: FUROSEMIDE 20 MG/2 ML VIAL IV SCH ×2 (06:00→18:00)
[2020-06-13] MEDS: InsuLIN REG 1unit/0.01ml Soln (100units/ml) SC SCH ×4 (06:26→21:53)
[2020-06-13] MEDS: ACCU-CHEK COMFORT CURVE STRIP VI SCH ×4 (06:27→21:49)
--- NOTE | 2020-06-13 06:47 | NUR ---
Closing note patient status unchanged, patient resting in bed with oxygen on at 2L via NC with even and unlabored respiration, continuous pulse ox on with o2 sat 95%, no s/s of distress or SOB. Bed n lowest locked position with side rails up x 2 and call light within reach.
[2020-06-13 08:00] VITALS: BP 100/63
--- NOTE | 2020-06-13 08:00 | NUR ---
ASSESSMENT NOTE PT IS ALERT ORIENTED X4, RESTING IN BED COMFORTABLY, NO DISTRESS NOTED, ABLE TO SELF REPOSITION, AND VERBALSI HIS DEMANDS, AMBULATE NEEDED, OXYGEN 2 L NC, SAT 96 % ON , PAIN 0/10, NO ACTIVE COUGH NOTED, CALL LIGHT WITHIN REACH
[2020-06-13] MEDS: BUDESONIDE (INHALATION) 180 MCG IH IN SCH ×2 (08:38→23:44)
[2020-06-13] MEDS: ALBUTEROL SULF HFA 90MCG INH 200DOSE IN SCH ×3 (08:38→23:44)
[2020-06-13 09:00] VITALS: BP 104/60
[2020-06-13] MEDS: INSULIN 70/30 1unit/0.01ml Susp (100units/ml) SC SCH ×2 (10:00→22:02)
[2020-06-13] MEDS: cefTRIAXone 1GM/50ML D5W 50 ML IV SCH ×2 (10:00→21:49)
--- NOTE | 2020-06-13 10:00 | NUR ---
DR ATWOOD AT BED SIDE FOLLOWING UP ON PT, AWARE THAT PT OXYGENATION IS IMPROVING PT ON 2 L NC
[2020-06-13] MEDS: ZINC SULFATE 220mg CAP or TAB PO SCH (10:24)
[2020-06-13] MEDS: POTASSIUM EFFERVESENT TAB 25 MEQ PO SCH (10:24)
[2020-06-13] MEDS: DexAMETHasone SOD PHOS 10MG/1ML VIAL INJ IV SCH (10:24)
[2020-06-13] MEDS: ASCORBIC ACID 1,000 MG TAB PO SCH (10:25)
[2020-06-13] MEDS: FAMOTIDINE 20 MG TAB PO SCH (10:25)
[2020-06-13] MEDS: CHOLECALCIFEROL (VITD3) 1,000UNIT=25mCg TAB PO SCH (10:26)
[2020-06-13] MEDS: ENOXAPARIN SOD 60 MG/0.6 ML SYRINGE SC SCH ×2 (10:26→21:49)
[2020-06-13 13:00] VITALS: BP 123/72
--- NOTE | 2020-06-13 13:50 | NUR ---
Nutrition Followup Note Wt 79.6kg Pt is covid positive in the covid wing. Pt with diet order of CCHO 75g. Pt appetite is good aeb pt with 100% po intake x4 06/12-06/13 per Rn notes. Est energy needs ABW 72 [id number] kcal (23-25 kcal/kg) Est protein needs 72-79g (1.0-1.1g/kg BW) will reassess prn. Labs: GLUC 127H, Alb 3.2L BM: Pt with 2 BMs 06/09 per RN note Skin: BS 20 low risk, full details in manager respiratory care note PES: Altered nutrition related lab values r/t current chronic medical condition aeb hyperglycemia, elev A1C Decreased nutrient needs r/t adiposity aeb pt`s high BMI of 30.5 kgm2 Comments Consider changing pt diet to CCHO 60g 1) refer to CDE on DC 2) continue current plan of care Expected Outcomes/Goals: pt will have improved labs pt will not gain any more wt F/u mod 3-5 days
--- NOTE | 2020-06-13 15:00 | NUR ---
[facility] INFORM ME THAT THE OXGEN TANK WILL BE HERE BETWEEN 2 -3 HR, PT MADE AWARE
[2020-06-13 15:31] VITALS: BP 123/72
--- NOTE | 2020-06-13 15:32 | NUR ---
1525 06/13/20 - Received a call for [employer] trade promotion analyst who stated patient's O2 sat on room must be below 90% to qualify for home O2, I provide infor. She stated home O2 would be delivered in 2-3 hours.
--- NOTE | 2020-06-13 18:50 | NUR ---
PT CONTINUE STABLE, CONTINUE MONITORING
--- NOTE | 2020-06-13 19:45 | NUR ---
Opening Shift Note Assumed care of patient, awake and alert, oriented x 4, follows direction. On oxygen at 2L via NC with continuous pulse ox on, o2 sat 96%. No S/S of distress, patient denies SOB. Patient turns independently in bed. Bed in lowest locked position with side rails up x 2 and call light within reach. Instructed on POC for discharge pending oxygen delivery, patient verbalized understanding. Instructed to call for assist PRN, will continue to monitor for changes Q1hr and PRN.
--- NOTE | 2020-06-13 20:00 | NUR ---
Called PBX RE: oxygen delivery inquiry spoke with [facility], states no oxygen company service has delivered oxygen. Will follow up.
--- NOTE | 2020-06-13 20:30 | NUR ---
Called PBX RE: oxygen delivery inquiry spoke with [facility], states no oxygen company service has delivered oxygen. Will follow up.
--- NOTE | 2020-06-13 21:00 | NUR ---
Contacted [facility] RE: Oxygen Delivery contacted [facility] at [phone] to inquiry status of oxygen delivery status, on with phone with [facility].
--- NOTE | 2020-06-13 21:25 | NUR ---
Contacted [facility] RE: Oxygen Delivery on with phone with Add[facility], she states "order was sent to case management, however case management put the order in late at 1800 for oxygen and home health, oxygen will be delivered in the morning." Informed patient , she verbalized understanding.
--- NOTE | 2020-06-13 21:30 | NUR ---
Refused IV Instructed patient on importance of IV access and risk of no IV access, patient verbalized understand, patient refused.
[2020-06-13 22:00] VITALS: BP 101/62
--- NOTE | 2020-06-13 22:00 | NUR ---
Titrated Oxygen Patient currently on oxygen at 2L via NC with even and unlabored respirations, no s/s of respiratory distress, patient denies SOB. Titrated oxygen to 1L, patient on continuous pulse ox, oxygen saturation maintains at 93-94%, patient tolerates well. Will continue to monitor.
--- NOTE | 2020-06-14 00:10 | NUR ---
Rounds patient on tele monitor, patient sleeping with even and unlabored respirations, no s/s of distress or SOB, on oxygen at 1L via NC, continuous pulse ox with oxygen saturations 94%. will continue to monitor.
[2020-06-14 05:00] VITALS: BP 121/69
[2020-06-14] MEDS: FUROSEMIDE 20 MG/2 ML VIAL IV SCH ×2 (05:44→18:00)
--- NOTE | 2020-06-14 05:45 | NUR ---
Rounds patient on tele monitor, patient sleeping with even and unlabored respirations, no s/s of distress or SOB, on oxygen at 1L via NC, continuous pulse ox with oxygen saturations 97%. will continue to monitor.
--- NOTE | 2020-06-14 05:55 | NUR ---
Contacted [place] RE: Oxygen Delivery contacted [facility] at [phone] to inquiry status of oxygen delivery status, on with phone with states [facility] oxygen request was put in, however, need to speak with case management when they get in [phone] for update on status for carrier.
[2020-06-14] MEDS: ACCU-CHEK COMFORT CURVE STRIP VI SCH ×4 (06:20→17:00)
[2020-06-14] MEDS: InsuLIN REG 1unit/0.01ml Soln (100units/ml) SC SCH ×3 (06:25→17:00)
--- NOTE | 2020-06-14 06:40 | NUR ---
Closing Note patient awake resting in bed with oxygen on at 1L via NC with even and unlabored respirations, oxygen saturation 96%, no s/s of respiratory distress or SOB. Bed in lowest locked position with side rails up x 2 and call light within reach.
[2020-06-14 08:52] VITALS: BP 105/67
[2020-06-14] MEDS: ASCORBIC ACID 1,000 MG TAB PO SCH (09:28)
[2020-06-14] MEDS: CHOLECALCIFEROL (VITD3) 1,000UNIT=25mCg TAB PO SCH (09:28)
[2020-06-14] MEDS: ZINC SULFATE 220mg CAP or TAB PO SCH (09:28)
[2020-06-14] MEDS: POTASSIUM EFFERVESENT TAB 25 MEQ PO SCH (09:28)
[2020-06-14] MEDS: FAMOTIDINE 20 MG TAB PO SCH (09:28)
[2020-06-14] MEDS: INSULIN 70/30 1unit/0.01ml Susp (100units/ml) SC SCH (10:00)
[2020-06-14] MEDS: BUDESONIDE (INHALATION) 180 MCG IH IN SCH (10:00)
[2020-06-14] MEDS: cefTRIAXone 1GM/50ML D5W 50 ML IV SCH (10:00)
[2020-06-14] MEDS: DexAMETHasone SOD PHOS 10MG/1ML VIAL INJ IV SCH (10:00)
[2020-06-14] MEDS: ENOXAPARIN SOD 60 MG/0.6 ML SYRINGE SC SCH (10:00)
--- NOTE | 2020-06-14 10:25 | NUR ---
1010 06/14/20 - Contacted [facility] at [phone] requesting update on DME, spoke with rn case mgr SOHAIL who stated that he will put a lara order on the home oxygen but it still may not get delivered for 2-4 hours. SOHAIL also stated that per [facility] policy patient 's O2 sat must be below 90% to qualify for home oxygen.
[2020-06-14 13:00] VITALS: BP 103/65
[2020-06-14] MEDS: ALBUTEROL SULF HFA 90MCG INH 200DOSE IN SCH ×2 (14:39→14:43)
--- NOTE | 2020-06-14 16:30 | NUR ---
portable oxygen delivered at bedside. Pt's will roller picker the pt after work at 5pm.
[2020-06-14 17:00] VITALS: BP 113/63
--- NOTE | 2020-06-14 18:00 | NUR ---
Discharge instructions given as ordered. Encourage to follow up with [facility] as instructed. All questions and concerns addressed. Patient verbalized understanding. Medication reconciliation form completed and copy given to patient. Home medications held in Pharmacy returned to patient. IV removed with catheter intact, pressure dressing applied. Telemetry unit returned to ICU. Patient taken to vehicle via wheelchair with all personal belongings, accompanied by staff and family member. No distress noted at time of departure.
== END 2020-06-14 17:55 | disposition home or self-care (01) | DRG 177 ==
LOC: ER 08:04 → TELE 08:05 → TELE-EAST 08:49
PROVIDERS: ADMIT Hospitalist; ATTEND Internal Medicine
PROC: 30230K1 Transfusion of Nonautologous Frozen Plasma into Peripheral Vein, Open Approach (ICD-10-PCS; principal; 2020-06-07)
DX: U07.1 COVID-19 (principal); J12.89 Other viral pneumonia; J13 Pneumonia due to Streptococcus pneumoniae; J96.01 Acute respiratory failure with hypoxia; E11.65 Type 2 diabetes mellitus with hyperglycemia; I10 Essential (primary) hypertension; E66.9 Obesity, unspecified; Z68.28 Body mass index [BMI] 28.0-28.9, adult
CPT/HCPCS: 36415; 36600; 71045; 80048; 80053; 80061; 80307; 81001; 82270; 82306; 82728; 82805; 82962; 83036; 83605; 83615; 83735; 83880; 84100; 84443; 84484; 85025; 85379; 85610; 85652; 85730; 86141; 86850; 86900; 86901; 87040; 87086; 87804; 87880; 93005; 94640; 94760; 96361; 96372; 96374; 96375; 99291; G0378; J0696; J1100; J1815; J3490

== ENCOUNTER → 2020-10-11 | Outpatient (CLI) | payer OTHER ==
[~2020-10-11] MED LIST: ACET-1304 PO; ALBUAER3 IN; APIX5TAB PO; ASCO100076 PO; BLOO1KIT60 XX; BUDE1AER5 IN; CHOL500033 PO; GUAI-41 PO; METF-370 PO
[2020-10-11 07:35] LABS: Urine WBC None Seen /hpf (0 - 5)
[2020-10-11 07:45] LABS: Urine Bacteria NONE SEEN /hpf (None Seen); Urine Blood Negative /uL (Negative); Urine Specific Gravity 1.033 (1.001-1.035)
[2020-10-11 08:16] LABS: Albumin 3.9 g/dL (3.4-5.0); Calcium 9.6 mg/dL (8.5-10.1); Potassium 3.8 mmol/L (3.5-5.1)
[2020-10-11 08:23] LABS: BUN/Creatinine Ratio 23.7; Bilirubin, Total 0.5 mg/dL (0.2-1.0); Total Protein 8.2 g/dL (6.4-8.2)
== END | disposition home or self-care (01) ==
LOC: LAB 07:11
PROVIDERS: ATTEND Internal Medicine
DX: E11.22 Type 2 diabetes mellitus with diabetic chronic kidney disease (principal); N18.9 Chronic kidney disease, unspecified
CPT/HCPCS: 36415; 80053; 80061; 81001; 82043; 83036

== ENCOUNTER → 2020-10-11 | Outpatient (CLI) | payer OTHER | END | disposition home or self-care (01) | LOC: XYW 10:49 | PROVIDERS: ATTEND Internal Medicine | DX: I51.7 Cardiomegaly (principal); R07.9 Chest pain, unspecified | CPT/HCPCS: 93306 ==

== ENCOUNTER → 2021-01-25 | Outpatient (CLI) | payer OTHER ==
[2021-01-25 08:52] LABS: Basophils # (auto) 0.1 10 ^3/uL (0-0.2); Basophils % (auto) 0.9 % (0.0-2.0); Eosinophils # (auto) 0.2 10 ^3/uL (0-0.8); Eosinophils % (auto) 2.3 % (0.0-7.0); Hematocrit 45.1 % (36.0-46.0); Lymphocytes # (auto) 2.3 10 ^3/uL (0.4-5.4); Lymphocytes % (auto) 36.1 % (10.0-50.0); Mean Corpuscular Hgb Conc. 33.2 g/dL (32.0-36.0); Mean Corpuscular Volume 87.3 fL (80.0-100.0); Monocytes # (auto) 0.4 10 ^3/uL (0-1.3); Monocytes % (auto) 6.9 % (0.0-12.0); Neutrophils # (auto) 3.5 10 ^3/uL (1.6-8.6); Neutrophils % (auto) 53.8 % (37.0-80.0); Nucleated Red Blood Cells % 0.1 %; Platelet Count (auto) 247 10^3/uL (140-450); Red Blood Cells 5.17 10^6/uL (4.0-5.20); Red Cell Distribution Width 14.3 % (11.8-14.3); White Blood Cell 6.5 10^3/uL (4.4-10.8)
[2021-01-25 09:00] LABS: Urine Bacteria NONE SEEN /hpf (None Seen); Urine Blood Negative /uL (Negative); Urine Specific Gravity 1.024 (1.001-1.035); Urine WBC <1 /hpf (0 - 5)
[2021-01-25 10:07] LABS: Albumin 3.9 g/dL (3.4-5.0); Calcium 9.8 mg/dL (8.5-10.1); Potassium 3.9 mmol/L (3.5-5.1)
[2021-01-25 10:17] LABS: BUN/Creatinine Ratio 27.1; Bilirubin, Total 0.5 mg/dL (0.2-1.0); Total Protein 8.6 g/dL (6.4-8.2)
== END | disposition home or self-care (01) ==
LOC: LAB 08:19
PROVIDERS: ATTEND Internal Medicine
DX: E11.22 Type 2 diabetes mellitus with diabetic chronic kidney disease (principal); N18.9 Chronic kidney disease, unspecified
CPT/HCPCS: 36415; 80053; 80061; 81001; 82043; 82306; 83036; 85025

== ENCOUNTER → 2021-06-20 | Outpatient (CLI) | payer OTHER ==
[2021-06-20 09:30] LABS: Basophils # (auto) 0.1 10 ^3/uL (0-0.2); Basophils % (auto) 0.9 % (0.0-2.0); Eosinophils # (auto) 0.2 10 ^3/uL (0-0.8); Eosinophils % (auto) 2.3 % (0.0-7.0); Hematocrit 42.4 % (36.0-46.0); Hemoglobin 14.6 g/dL (12.2-16.2); Lymphocytes # (auto) 2.4 10 ^3/uL (0.4-5.4); Mean Corpuscular Hemoglobin 29.8 pg (28.0-32.0); Mean Corpuscular Hgb Conc. 34.5 g/dL (32.0-36.0); Mean Corpuscular Volume 86.5 fL (80.0-100.0); Monocytes # (auto) 0.5 10 ^3/uL (0-1.3); Neutrophils # (auto) 4.6 10 ^3/uL (1.6-8.6); Neutrophils % (auto) 58.8 % (37.0-80.0); Nucleated Red Blood Cells % 0.1 %; Red Cell Distribution Width 14.3 % (11.8-14.3); White Blood Cell 7.8 10^3/uL (4.4-10.8)
[2021-06-20 09:51] LABS: Potassium 3.9 mmol/L (3.5-5.1)
[2021-06-20 10:03] LABS: Albumin 3.6 g/dL (3.4-5.0); BUN/Creatinine Ratio 30.4; Bilirubin, Total 0.5 mg/dL (0.2-1.0); Calcium 9.6 mg/dL (8.5-10.1); Total Protein 8.5 g/dL (6.4-8.2)
== END | disposition home or self-care (01) ==
LOC: LAB 08:29
PROVIDERS: ATTEND Internal Medicine
DX: E11.22 Type 2 diabetes mellitus with diabetic chronic kidney disease (principal); N18.9 Chronic kidney disease, unspecified
CPT/HCPCS: 36415; 80053; 80061; 83036; 85025

== ENCOUNTER 2021-06-24 06:27 | Inpatient (IN) | payer OTHER ==
[~2021-06-24] VITALS: Ht 167.6 cm; Wt 79.0 kg
[2021-06-24 07:57] LABS: Basophils # (auto) 0.1 10 ^3/uL (0-0.2); Basophils % (auto) 0.6 % (0.0-2.0); Eosinophils # (auto) 0.1 10 ^3/uL (0-0.8); Eosinophils % (auto) 0.6 % (0.0-7.0); Hematocrit 45.1 % (36.0-46.0); Hemoglobin 15.1 g/dL (12.2-16.2); Lymphocytes # (auto) 1.3 10 ^3/uL (0.4-5.4); Lymphocytes % (auto) 11.4 % (10.0-50.0); Mean Corpuscular Hemoglobin 29.2 pg (28.0-32.0); Mean Corpuscular Hgb Conc. 33.6 g/dL (32.0-36.0); Mean Corpuscular Volume 86.9 fL (80.0-100.0); Monocytes # (auto) 0.5 10 ^3/uL (0-1.3); Neutrophils # (auto) 9.7 10 ^3/uL (1.6-8.6); Neutrophils % (auto) 83.4 % (37.0-80.0); Red Blood Cells 5.19 10^6/uL (4.0-5.20); Red Cell Distribution Width 14.5 % (11.8-14.3); White Blood Cell 11.6 10^3/uL (4.4-10.8)
[2021-06-24] MEDS ORDERED: DONNATAL 5ml ORAL Elix (BELLADONNA ALK-PHENOBARB) PO ONE (08:00)
[2021-06-24] MEDS ORDERED: SODIUM CHLORIDE 0.9% 1,000 ML IV ONE ×2 (08:00)
[2021-06-24] MEDS ORDERED: LIDOCAINE VISCOUS 2% 15ML UD PO ONE (08:00)
[2021-06-24] MEDS ORDERED: ALUM & MAG HYDROX-SIMETH LIQ(MAALOX) 30 ML PO ONE (08:00)
[2021-06-24] MEDS ORDERED: IOHEXOL 300 MG/ML 100ML BOTTLE IJ ONE ×2 (08:02→08:45)
[2021-06-24 08:24] LABS: Urine Bacteria MOD /hpf (None Seen); Urine Blood Negative /uL (Negative); Urine Specific Gravity 1.044 (1.001-1.035); Urine WBC 65 /hpf (0 - 5)
[2021-06-24 08:28] LABS: BUN/Creatinine Ratio 23.3; Calcium 9.3 mg/dL (8.5-10.1); Potassium 3.7 mmol/L (3.5-5.1)
[2021-06-24 08:31] LABS: Bilirubin, Total 0.5 mg/dL (0.2-1.0)
[2021-06-24] MEDS ORDERED: ONDANSETRON HCL 4 MG/2 ML VIAL IV ONE (10:00)
[2021-06-24] MEDS ORDERED: MORPHINE SULFATE 4 MG/ML SYR/VIAL IV ONE (10:00)
[2021-06-24] MEDS ORDERED: cefTRIAXone 1GM/50ML D5W 50 ML IV ONE (10:45)
[2021-06-24] MEDS ORDERED: MORPHINE SULF INJ 2 MG/ML SYRINGE 1ML IV PRN (11:30)
[2021-06-24] MEDS ORDERED: NITROGLYCERIN 0.4 MG SL TAB SL PRN (11:30)
[2021-06-24 11:40] LABS: Amylase 60 U/L (25-115)
[2021-06-24] MEDS: PANTOPRAZOLE 40 MG/10 ML VIAL INJ IV SCH (13:02)
[2021-06-24 13:13] LABS: INR 1.03 (0.9-1.15); Partial Thromboplastin Time 29.5 sec (23.0-31.2)
[2021-06-24] MEDS: metroNIDAZOLE 500MG/100ML 100 ML IV SCH ×2 (14:15→21:29)
[2021-06-24] MEDS: D5W/SOD CHL 0.45%/KCL 20MEQ 1,000 ML IV SCH ×2 (14:57→17:45)
[2021-06-24 17:00] VITALS: BP 135/68
[2021-06-24] MEDS: MORPHINE SULF INJ 2 MG/ML SYRINGE 1ML IV PRN (17:44)
[2021-06-24] MEDS: ONDANSETRON HCL 4 MG/2 ML VIAL IV PRN (17:44)
[2021-06-24 22:00] VITALS: BP 107/66
[2021-06-25] MEDS: ACETAMINOPHEN 325 MG TAB PO PRN (02:27)
[2021-06-25] MEDS: D5W/SOD CHL 0.45%/KCL 20MEQ 1,000 ML IV SCH ×3 (03:52→10:45)
[2021-06-25 05:00] VITALS: BP 110/59
[2021-06-25] MEDS: metroNIDAZOLE 500MG/100ML 100 ML IV SCH ×3 (05:08→22:05)
[2021-06-25 07:42] LABS: Basophils # (auto) 0.1 10 ^3/uL (0-0.2); Basophils % (auto) 0.5 % (0.0-2.0); Eosinophils # (auto) 0 10 ^3/uL (0-0.8); Hemoglobin 14.6 g/dL (12.2-16.2); Lymphocytes # (auto) 1.9 10 ^3/uL (0.4-5.4); Lymphocytes % (auto) 10.7 % (10.0-50.0); Mean Corpuscular Hemoglobin 29.1 pg (28.0-32.0); Mean Corpuscular Hgb Conc. 33.3 g/dL (32.0-36.0); Mean Corpuscular Volume 87.5 fL (80.0-100.0); Monocytes # (auto) 1.7 10 ^3/uL (0-1.3); Monocytes % (auto) 9.6 % (0.0-12.0); Neutrophils # (auto) 14.2 10 ^3/uL (1.6-8.6); Neutrophils % (auto) 79.2 % (37.0-80.0); Red Blood Cells 5.03 10^6/uL (4.0-5.20); Red Cell Distribution Width 14.4 % (11.8-14.3); White Blood Cell 17.9 10^3/uL (4.4-10.8)
[2021-06-25 08:11] LABS: Albumin 3.4 g/dL (3.4-5.0); BUN/Creatinine Ratio 13.3; Calcium 8.9 mg/dL (8.5-10.1)
[2021-06-25 08:14] LABS: Bilirubin, Total 0.8 mg/dL (0.2-1.0); Total Protein 8.2 g/dL (6.4-8.2)
[2021-06-25 09:00] VITALS: BP 116/68
[2021-06-25] MEDS: cefTRIAXone 1GM/50ML D5W 50 ML IV SCH (09:19)
[2021-06-25] MEDS: PANTOPRAZOLE 40 MG/10 ML VIAL INJ IV SCH (09:20)
[2021-06-25] MEDS ORDERED: DEXTROSE (50%) 50ML SYRG IV PRN (09:45)
[2021-06-25] MEDS: ACCU-CHEK COMFORT CURVE STRIP VI SCH ×2 (12:00→17:33)
[2021-06-25] MEDS: InsuLIN REG 1unit/0.01ml Soln (100units/ml) SC SCH ×2 (12:00→17:33)
[2021-06-25 13:00] VITALS: BP 109/56
[2021-06-25] MEDS: ceFAZolin 1GM/50ML 100 ML IV ONE ×2 (15:33→17:33)
[2021-06-25] MEDS ORDERED: MIDAZOLAM HCL 2MG/2ML 2ml VIAL (1mg/ml) ONE (17:07)
[2021-06-25] MEDS ORDERED: fentaNYL CITRATE 100 MCG/2 ML VL ONE (17:07)
[2021-06-25] MEDS ORDERED: DexAMETHasone SOD PHOS 10MG/1ML VIAL INJ ONE (17:08)
[2021-06-25] MEDS ORDERED: MEPERIDINE HCL (50 MG/ML) 1 ML VIAL ONE (17:08)
[2021-06-25] MEDS ORDERED: PROPOFOL 10 MG/ML 20 ML IV ONE (17:08)
[2021-06-25] MEDS ORDERED: NEOSTIGMINE 1 MG/ML INJ (10mg/10ML VIAL) IV ONE (17:15)
[2021-06-25] MEDS ORDERED: GLYCOPYRROLATE 0.2 MG/ML 1ML VIAL IV ONE (17:15)
[2021-06-25] MEDS ORDERED: LIDOCAINE 1% HCL (LOCAL ANESTH.) INJ 20ML MDV ONE (17:21)
[2021-06-25] MEDS ORDERED: ROCURONIUM 10MG/ML 10ML VIAL IV ONE (18:16)
[2021-06-25] MEDS ORDERED: ONDANSETRON HCL 4 MG/2 ML VIAL IV PRN (18:30)
[2021-06-25] MEDS ORDERED: MIDAZOLAM HCL 2MG/2ML 2ml VIAL (1mg/ml) IV PRN (18:30)
[2021-06-25] MEDS ORDERED: ACCU-CHEK COMFORT CURVE STRIP VI ONE (18:30)
[2021-06-25] MEDS ORDERED: MORPHINE SULF INJ 2 MG/ML SYRINGE 1ML IV PRN (18:30)
[2021-06-25] MEDS ORDERED: ePHEDrine SULFATE 50 MG/ML AMP IV PRN (18:30)
[2021-06-25] MEDS ORDERED: HYDROmorphone HCL 2 MG/ML VL IV PRN (18:30)
[2021-06-25] MEDS ORDERED: hydrALAZINE HCL 20 MG/ML VL IV PRN (18:30)
[2021-06-25] MEDS ORDERED: LABETALOL HCL 5 MG/ML 4ML SYRINGE IV PRN (18:30)
[2021-06-25 22:00] VITALS: BP 121/72
[2021-06-25] MEDS: ONDANSETRON HCL 4 MG/2 ML VIAL IV PRN (22:00)
[2021-06-25] MEDS: MORPHINE SULF INJ 2 MG/ML SYRINGE 1ML IV PRN (22:05)
[2021-06-26] MEDS: ACCU-CHEK COMFORT CURVE STRIP VI SCH ×4 (00:40→16:52)
[2021-06-26] MEDS: InsuLIN REG 1unit/0.01ml Soln (100units/ml) SC SCH ×4 (00:40→16:52)
[2021-06-26] MEDS: ONDANSETRON HCL 4 MG/2 ML VIAL IV PRN ×3 (02:44→23:55)
[2021-06-26 05:00] VITALS: BP 111/70
[2021-06-26] MEDS: MORPHINE SULF INJ 2 MG/ML SYRINGE 1ML IV PRN (05:30)
[2021-06-26] MEDS: metroNIDAZOLE 500MG/100ML 100 ML IV SCH ×2 (05:50→06:55)
[2021-06-26 07:21] LABS: Basophils # (auto) 0 10 ^3/uL (0-0.2); Basophils % (auto) 0.1 % (0.0-2.0); Eosinophils # (auto) 0 10 ^3/uL (0-0.8); Hematocrit 35.5 % (36.0-46.0); Hemoglobin 11.9 g/dL (12.2-16.2); Lymphocytes # (auto) 0.8 10 ^3/uL (0.4-5.4); Lymphocytes % (auto) 5.2 % (10.0-50.0); Mean Corpuscular Hemoglobin 29.4 pg (28.0-32.0); Mean Corpuscular Hgb Conc. 33.4 g/dL (32.0-36.0); Mean Corpuscular Volume 87.8 fL (80.0-100.0); Monocytes # (auto) 1.1 10 ^3/uL (0-1.3); Monocytes % (auto) 6.6 % (0.0-12.0); Neutrophils # (auto) 14.3 10 ^3/uL (1.6-8.6); Neutrophils % (auto) 88.1 % (37.0-80.0); Nucleated Red Blood Cells % 0.1 %; Red Blood Cells 4.04 10^6/uL (4.0-5.20); Red Cell Distribution Width 14.6 % (11.8-14.3); White Blood Cell 16.2 10^3/uL (4.4-10.8)
[2021-06-26 07:30] LABS: Albumin 2.6 g/dL (3.4-5.0); Calcium 8.6 mg/dL (8.5-10.1); Potassium 4.1 mmol/L (3.5-5.1)
[2021-06-26 07:35] LABS: BUN/Creatinine Ratio 17.8; Bilirubin, Total 0.4 mg/dL (0.2-1.0); Total Protein 7.1 g/dL (6.4-8.2)
[2021-06-26] MEDS: cefTRIAXone 1GM/50ML D5W 50 ML IV SCH (08:48)
[2021-06-26] MEDS: PANTOPRAZOLE 40 MG/10 ML VIAL INJ IV SCH (08:48)
[2021-06-26 08:57] VITALS: BP 106/65
[2021-06-26] MEDS ORDERED: MORPHINE SULF INJ 2 MG/ML SYRINGE 1ML IV PRN (11:00)
[2021-06-26] MEDS: D5W/SOD CHL 0.45%/KCL 20MEQ 1,000 ML IV SCH (11:01)
[2021-06-26] MEDS: traMADol HCL 50 MG TAB PO PRN ×2 (11:38→18:40)
[2021-06-26 13:00] VITALS: BP 110/72
[2021-06-26 16:38] VITALS: BP 100/68
[2021-06-26 22:00] VITALS: BP 112/70
[2021-06-27] MEDS: metroNIDAZOLE 500MG/100ML 100 ML IV SCH ×2 (00:04→06:28)
[2021-06-27] MEDS: ACCU-CHEK COMFORT CURVE STRIP VI SCH ×2 (00:04→06:28)
[2021-06-27] MEDS: D5W/SOD CHL 0.45%/KCL 20MEQ 1,000 ML IV SCH ×2 (03:37→07:00)
[2021-06-27] MEDS: traMADol HCL 50 MG TAB PO PRN ×2 (03:46→11:23)
[2021-06-27 05:00] VITALS: BP 105/63
[2021-06-27] MEDS: InsuLIN REG 1unit/0.01ml Soln (100units/ml) SC SCH ×2 (06:00)
[2021-06-27 07:40] LABS: Basophils # (auto) 0.1 10 ^3/uL (0-0.2); Basophils % (auto) 0.4 % (0.0-2.0); Eosinophils # (auto) 0.1 10 ^3/uL (0-0.8); Eosinophils % (auto) 0.8 % (0.0-7.0); Hematocrit 35.7 % (36.0-46.0); Hemoglobin 11.7 g/dL (12.2-16.2); Lymphocytes # (auto) 2.9 10 ^3/uL (0.4-5.4); Lymphocytes % (auto) 23.1 % (10.0-50.0); Mean Corpuscular Hemoglobin 29.1 pg (28.0-32.0); Mean Corpuscular Hgb Conc. 32.9 g/dL (32.0-36.0); Mean Corpuscular Volume 88.6 fL (80.0-100.0); Monocytes # (auto) 1.1 10 ^3/uL (0-1.3); Monocytes % (auto) 8.5 % (0.0-12.0); Neutrophils # (auto) 8.4 10 ^3/uL (1.6-8.6); Neutrophils % (auto) 67.2 % (37.0-80.0); Nucleated Red Blood Cells % 0.1 %; Red Blood Cells 4.03 10^6/uL (4.0-5.20); Red Cell Distribution Width 14.4 % (11.8-14.3); White Blood Cell 12.6 10^3/uL (4.4-10.8)
[2021-06-27 07:59] LABS: Albumin 2.5 g/dL (3.4-5.0); Calcium 8.6 mg/dL (8.5-10.1); Potassium 3.6 mmol/L (3.5-5.1)
[2021-06-27 08:00] VITALS: BP 107/58
[2021-06-27 08:04] LABS: BUN/Creatinine Ratio 18.4; Bilirubin, Total 0.3 mg/dL (0.2-1.0); Total Protein 7.1 g/dL (6.4-8.2)
[2021-06-27] MEDS: PANTOPRAZOLE 40 MG/10 ML VIAL INJ IV SCH (09:06)
[2021-06-27] MEDS: cefTRIAXone 1GM/50ML D5W 50 ML IV SCH (09:06)
[2021-06-27] MEDS: ACETAMINOPHEN 325 MG TAB PO PRN (09:30)
[2021-06-27 12:00] VITALS: BP 102/63
[2021-06-27 12:56] VITALS: BP 102/63
== END 2021-06-27 17:25 | disposition home or self-care (01) | DRG 854 ==
LOC: ER 06:27 → TELE 11:17 → TELE-CENTR 16:52
PROVIDERS: ADMIT Nurse Practitioner Acute Care; ATTEND Internal Medicine
PROC: 0FT44ZZ Resection of Gallbladder, Percutaneous Endoscopic Approach (ICD-10-PCS; principal; 2021-06-25 17:34)
DX: A41.9 Sepsis, unspecified organism (principal); K80.00 Calculus of gallbladder with acute cholecystitis without obstruction; E66.01 Morbid (severe) obesity due to excess calories; N30.90 Cystitis, unspecified without hematuria; E11.9 Type 2 diabetes mellitus without complications; I10 Essential (primary) hypertension; K76.0 Fatty (change of) liver, not elsewhere classified; Z79.01 Long term (current) use of anticoagulants; Z86.16 Personal history of COVID-19; Z87.01 Personal history of pneumonia (recurrent); Z68.28 Body mass index [BMI] 28.0-28.9, adult; Z20.822 Contact with and (suspected) exposure to COVID-19
CPT/HCPCS: 36415; 71045; 74177; 76705; 80053; 81001; 82150; 82962; 83605; 83690; 84484; 85025; 85610; 85730; 86677; 86850; 86900; 86901; 87040; 87070; 87075; 87086; 87205; 87426; 93005; 96361; 96374; 96375; C9113; G0378; J0690; J0696; J1100; J2001; J2250; J2405; J2704; J3490

== ENCOUNTER → 2021-10-25 | Outpatient (CLI) | payer OTHER ==
[~2021-10-25] MED LIST changes: -ALBUAER3 IN; -APIX5TAB PO; -ASCO100076 PO; -BUDE1AER5 IN; -CHOL500033 PO; -GUAI-41 PO; -METF-370 PO
[2021-10-25 08:27] LABS: Basophils # (auto) 0.1 10 ^3/uL (0-0.2); Basophils % (auto) 0.9 % (0.0-2.0); Eosinophils # (auto) 0.2 10 ^3/uL (0-0.8); Eosinophils % (auto) 2.1 % (0.0-7.0); Hemoglobin 14.8 g/dL (12.2-16.2); Lymphocytes # (auto) 2.1 10 ^3/uL (0.4-5.4); Lymphocytes % (auto) 28.7 % (10.0-50.0); Mean Corpuscular Hemoglobin 29.3 pg (28.0-32.0); Mean Corpuscular Hgb Conc. 33.6 g/dL (32.0-36.0); Mean Corpuscular Volume 87.3 fL (80.0-100.0); Monocytes # (auto) 0.6 10 ^3/uL (0-1.3); Monocytes % (auto) 7.7 % (0.0-12.0); Neutrophils # (auto) 4.5 10 ^3/uL (1.6-8.6); Neutrophils % (auto) 60.6 % (37.0-80.0); Nucleated Red Blood Cells % 0.3 %; Red Blood Cells 5.04 10^6/uL (4.0-5.20); White Blood Cell 7.4 10^3/uL (4.4-10.8)
[2021-10-25 09:31] LABS: Albumin 3.9 g/dL (3.4-5.0); Calcium 9.6 mg/dL (8.5-10.1); Potassium 4.1 mmol/L (3.5-5.1)
[2021-10-25 09:37] LABS: BUN/Creatinine Ratio 27.1; Bilirubin, Total 0.6 mg/dL (0.2-1.0); Total Protein 8.5 g/dL (6.4-8.2)
== END | disposition home or self-care (01) ==
LOC: LAB 08:02
PROVIDERS: ATTEND Student in an Organized Health Care Education/Training Program
DX: E11.22 Type 2 diabetes mellitus with diabetic chronic kidney disease (principal); N18.9 Chronic kidney disease, unspecified
CPT/HCPCS: 36415; 80053; 80061; 82043; 83036; 85025

== ENCOUNTER → 2022-09-25 | Outpatient (CLI) | payer OTHER ==
[2022-09-25 12:45] LABS: BUN/Creatinine Ratio 26.7; Calcium 9.5 mg/dL (8.5-10.1); Potassium 3.8 mmol/L (3.5-5.1)
== END | disposition home or self-care (01) ==
LOC: LAB 07:42
PROVIDERS: ATTEND Student in an Organized Health Care Education/Training Program
DX: E11.9 Type 2 diabetes mellitus without complications (principal)
CPT/HCPCS: 36415; 80048; 80061; 83036

== ENCOUNTER → 2024-10-06 | Outpatient (CLI) | payer OTHER ==
[2024-10-06 08:56] LABS: Alanine Aminotransferase 29 U/L (7-40); Albumin 4.6 g/dL (3.2-4.8); Alkaline Phosphatase 98 U/L (46-116); Anion Gap 9 (5-15); Aspartate Aminotransferase 16 U/L (13-40); Blood Urea Nitrogen 13 mg/dL (9-23); Calcium 10.6 mg/dL (8.7-10.4); Carbon Dioxide 28 mmol/L (20-31); Chloride 103 mmol/L (98-107); Glucose 149 mg/dL (74-106); LDL Cholesterol 55 mg/dL (< 100); Sodium 140 mmol/L (136-145); Triglycerides 97 mg/dL (< 150)
[2024-10-06 08:57] LABS: Bilirubin, Total 0.6 mg/dL (0.2-1.0); Cholesterol 141 mg/dL (< 200); HDL Cholesterol 73 mg/dL (40-59); Total Protein 8.1 g/dL (5.7-8.2)
== END | disposition home or self-care (01) ==
LOC: LAB 07:48
PROVIDERS: ATTEND Nurse Practitioner
DX: I10 Essential (primary) hypertension (principal); E11.9 Type 2 diabetes mellitus without complications; E78.1 Pure hyperglyceridemia
CPT/HCPCS: 36415; 80053; 80061; 83036

== ENCOUNTER → 2024-12-12 | Outpatient (CLI) | payer OTHER ==
[2024-12-12 08:00] LABS: Basophils # (auto) 0.1 10 ^3/uL (0-0.2); Eosinophils # (auto) 0.2 10 ^3/uL (0-0.8); Eosinophils % (auto) 2.2 % (0.0-7.0); Hematocrit 43.7 % (36.0-46.0); Hemoglobin 14.5 g/dL (12.2-16.2); Lymphocytes # (auto) 2.6 10 ^3/uL (0.4-5.4); Lymphocytes % (auto) 32.3 % (10.0-50.0); Mean Corpuscular Hemoglobin 29.3 pg (28.0-32.0); Mean Corpuscular Hgb Conc. 33.3 g/dL (32.0-36.0); Mean Corpuscular Volume 88.1 fL (80.0-100.0); Monocytes # (auto) 0.6 10 ^3/uL (0-1.3); Monocytes % (auto) 7.8 % (0.0-12.0); Neutrophils # (auto) 4.6 10 ^3/uL (1.6-8.6); Neutrophils % (auto) 56.7 % (37.0-80.0); Platelet Count (auto) 232 10^3/uL (140-450); Red Blood Cells 4.95 10^6/uL (4.0-5.20)
[2024-12-12 08:27] LABS: Alanine Aminotransferase 32 U/L (7-40); Alkaline Phosphatase 98 U/L (46-116); Anion Gap 8 (5-15); BUN/Creatinine Ratio 14.7 (10.0-20.0); Blood Urea Nitrogen 10 mg/dL (9-23); Carbon Dioxide 26 mmol/L (20-31); Chloride 106 mmol/L (98-107); Cholesterol 116 mg/dL (< 200); LDL Cholesterol 38 mg/dL (< 100); Potassium 3.9 mmol/L (3.5-5.1); Sodium 140 mmol/L (136-145); Triglycerides 84 mg/dL (< 150)
[2024-12-12 08:28] LABS: Albumin 4.9 g/dL (3.2-4.8); Bilirubin, Total 0.5 mg/dL (0.2-1.0); Calcium 10.4 mg/dL (8.7-10.4); Glucose 119 mg/dL (74-106); HDL Cholesterol 64 mg/dL (40-59)
[2024-12-12 08:31] LABS: Aspartate Aminotransferase 21 U/L (13-40)
[2024-12-12 09:04] LABS: Urine Bacteria FEW /hpf (None Seen); Urine Blood 1+ /uL (Negative); Urine Clarity Clear (Clear); Urine Color Light-Yellow (Yellow); Urine Protein, UAD Negative (Negative); Urine Specific Gravity 1.032 (1.001-1.035); Urine Squamous Epithelial Cell FEW /hpf (<5); Urine Urobilinogen Normal (Negative); Urine WBC 11 /HPF (0-5)
== END | disposition home or self-care (01) ==
LOC: LAB 07:35
PROVIDERS: ATTEND Nurse Practitioner
DX: E11.9 Type 2 diabetes mellitus without complications (principal); I10 Essential (primary) hypertension; E78.5 Hyperlipidemia, unspecified
CPT/HCPCS: 36415; 80053; 80061; 81001; 83036; 84443; 85025

== ENCOUNTER → 2025-04-11 | Outpatient (CLI) | payer OTHER ==
[2025-04-11 08:27] LABS: Alanine Aminotransferase 33 U/L (7-40); Alkaline Phosphatase 97 U/L (46-116); BUN/Creatinine Ratio 19.7 (10.0-20.0); Blood Urea Nitrogen 13 mg/dL (9-23)
[2025-04-11 08:28] LABS: Aspartate Aminotransferase 25 U/L (13-40); Bilirubin, Total 0.5 mg/dL (0.2-1.0)
[2025-04-11 08:38] LABS: Calcium 10.7 mg/dL (8.7-10.4); Glucose 122 mg/dL (74-106); Total Protein 8.4 g/dL (5.7-8.2)
[2025-04-11 09:04] LABS: Anion Gap 9 (5-15); Carbon Dioxide 26 mmol/L (20-31); Chloride 104 mmol/L (98-107); Sodium 139 mmol/L (136-145)
== END | disposition home or self-care (01) ==
LOC: LAB 07:16
PROVIDERS: ATTEND Nurse Practitioner
DX: I10 Essential (primary) hypertension (principal); E11.9 Type 2 diabetes mellitus without complications; E78.5 Hyperlipidemia, unspecified
CPT/HCPCS: 36415; 80053; 83036

== ENCOUNTER 2025-10-23 07:53 | Outpatient (CLI) | payer OTHER ==
[2025-10-23 09:34] LABS: Alanine Aminotransferase 42 U/L (7-40); Albumin 4.5 g/dL (3.2-4.8); Alkaline Phosphatase 97 U/L (46-116); Anion Gap 10 (5-15); BUN/Creatinine Ratio 20.3 (10.0-20.0); Bilirubin, Total 0.5 mg/dL (0.2-1.0); Blood Urea Nitrogen 13 mg/dL (9-23); Calcium 9.8 mg/dL (8.7-10.4); Carbon Dioxide 28 mmol/L (20-31); Chloride 104 mmol/L (98-107); Cholesterol 138 mg/dL (< 200); Glucose 121 mg/dL (74-106); Potassium 4.0 mmol/L (3.5-5.1); Sodium 142 mmol/L (136-145); Total Protein 8.1 g/dL (5.7-8.2); Triglycerides 70 mg/dL (< 150)
[2025-10-23 09:49] LABS: HDL Cholesterol 70 mg/dL (40-59)
== END 2025-10-23 17:00 | disposition home or self-care (01) ==
LOC: LAB 07:53
PROVIDERS: ATTEND Nurse Practitioner
DX: E11.9 Type 2 diabetes mellitus without complications (principal); E78.5 Hyperlipidemia, unspecified
CPT/HCPCS: 36415; 80053; 80061; 83036